=== PATIENT | male | born 1985 | race Caucasian/White ===

== ENCOUNTER 2017-05-23 11:57 | Observation (INO) | payer OTHER ==
[2017-05-23] MEDS: ONDANSETRON 4 MG INJ IV ×2 (15:44→17:38)
[2017-05-23 15:46] LABS: ADD MAN DIFF? NO
[2017-05-23 15:52] LABS: BASOPHILS % 0.4 % (0.0-2.0); EOSINOPHILS # 0.1 10^3/ul (0.0-0.5); EOSINOPHILS % 0.9 % (0.0-7.0); HEMATOCRIT 26.3 % (42.0-52.0); HEMOGLOBIN 8.4 g/dl (14.0-18.0); LYMPHOCYTES # 0.7 10^3/ul (0.8-2.9); LYMPHOCYTES % 9.1 % (15.0-51.0); MEAN CORPUSCULAR HEMOGLOBIN 28.9 pg (29.0-33.0); MEAN CORPUSCULAR HGB CONC 31.9 g/dl (32.0-37.0); MEAN CORPUSCULAR VOLUME 90.4 fl (82.0-101.0); MEAN PLATELET VOLUME 11.3 fl (7.4-10.4); MONOCYTE # 0.6 10^3/ul (0.3-0.9); MONOCYTES % 7.6 % (0.0-11.0); NEUTROPHIL # 6.4 10^3/ul (1.6-7.5); NEUTROPHILS % 81.5 % (39.0-77.0); PLATELET COUNT 196 10^3/UL (140-415); RED BLOOD COUNT 2.91 10^6/ul (4.70-6.10); RED CELL DISTRIBUTION WIDTH 16.1 % (11.5-14.5)
[2017-05-23 15:52] LABS: WHITE BLOOD COUNT 7.8 10^3/ul (4.8-10.8)
[2017-05-23 16:13] LABS: ALANINE AMINOTRANSFERASE 22 IU/L (13-69); ALBUMIN 4.3 g/dl (3.3-4.9); ALBUMIN/GLOBULIN RATIO 1.43; ALKALINE PHOSPHATASE 87 IU/L (42-121); ANION GAP 30 (8-16); ASPARTATE AMINO TRANSFERASE < 8 IU/L (15-46); BLOOD UREA NITROGEN 94 mg/dl (7-20); CALCIUM 9.6 mg/dl (8.4-10.2); CARBON DIOXIDE 19 mmol/L (21-31); CHLORIDE 106 mmol/L (97-110); GLUCOSE 92 mg/dl (70-220); SODIUM 148 mmol/L (135-144); TOTAL PROTEIN 7.3 g/dl (6.1-8.1)
[2017-05-23 16:30] LABS: CREATININE 31.14 mg/dl (0.61-1.24)
[2017-05-23] MEDS: NA BICARBONATE 8.4% 50 ML SYG IV (17:18)
[2017-05-23] MEDS: CA CHLORIDE 10% 10 ML SYRINGE IV (17:18)
[2017-05-23] MEDS: NA POLYST SULFON 15 GM/60 ML BTL PO (17:19)
[2017-05-23] MEDS ORDERED: DEXTROSE 50% 50 ML SYRINGE (17:26)
[2017-05-23] MEDS: INSULIN REGULAR, HUMAN 100 UNIT/1 ML 3ML VIAL IVP (17:30)
[2017-05-23] MEDS: SODIUM BICARBONATE (IV ADD) 100 MEQ in DEXTROSE 5% 900 ML IV (17:38)
[2017-05-23] MEDS: DEXTROSE 50% 50 ML SYRINGE IV (17:38)
[2017-05-23] MEDS ORDERED: ONDANSETRON 4 MG INJ IV ×2 (18:00→19:30)
[2017-05-23] MEDS ORDERED: ACETAMINOPHEN 325 MG TAB PO ×2 (18:00→19:30)
[2017-05-23] MEDS: NICARDipine HCL 30 MG CAPSULE PO (19:15)
[2017-05-23] MEDS ORDERED: NACL 0.9% 3 ML SYG IV (19:30)
[2017-05-23] MEDS ORDERED: morphine LIQ (10 MG/5 ML) CUP PO (19:30)
[2017-05-23 23:34] LABS: HEPATITIS B SURFACE ANTIGEN NEGATIVE (NEGATIVE)
[2017-05-24] MEDS: HEPARIN 1000 UNITS/ML 10 ML INJ CATHETER (01:14)
[2017-05-24] MEDS: HYDROCODONE/APAP (5/325) TAB PO (02:42)
[2017-05-24] MEDS: CALCIUM ACETATE 667 MG CAP PO ×3 (08:14→17:26)
[2017-05-24] MEDS: BENAZEPRIL 40 MG TAB PO (08:16)
[2017-05-24 08:27] LABS: ADD MAN DIFF? NO
[2017-05-24 08:37] LABS: BASOPHILS % 0.4 % (0.0-2.0); EOSINOPHILS # 0.1 10^3/ul (0.0-0.5); EOSINOPHILS % 2.4 % (0.0-7.0); HEMATOCRIT 25.7 % (42.0-52.0); HEMOGLOBIN 8.1 g/dl (14.0-18.0); LYMPHOCYTES # 0.8 10^3/ul (0.8-2.9); LYMPHOCYTES % 16.6 % (15.0-51.0); MEAN CORPUSCULAR HEMOGLOBIN 28.3 pg (29.0-33.0); MEAN CORPUSCULAR HGB CONC 31.5 g/dl (32.0-37.0); MEAN CORPUSCULAR VOLUME 89.9 fl (82.0-101.0); MEAN PLATELET VOLUME 10.2 fl (7.4-10.4); MONOCYTE # 0.2 10^3/ul (0.3-0.9); MONOCYTES % 3.9 % (0.0-11.0); NEUTROPHIL # 3.5 10^3/ul (1.6-7.5); NEUTROPHILS % 76.5 % (39.0-77.0); PLATELET COUNT 158 10^3/UL (140-415); RED BLOOD COUNT 2.86 10^6/ul (4.70-6.10); RED CELL DISTRIBUTION WIDTH 15.9 % (11.5-14.5)
[2017-05-24 08:37] LABS: WHITE BLOOD COUNT 4.6 10^3/ul (4.8-10.8)
[2017-05-24 09:00] LABS: ALANINE AMINOTRANSFERASE 25 IU/L (13-69); ALBUMIN 4.2 g/dl (3.3-4.9); ALKALINE PHOSPHATASE 74 IU/L (42-121); ANION GAP 21 (8-16); ASPARTATE AMINO TRANSFERASE 9 IU/L (15-46); BLOOD UREA NITROGEN 46 mg/dl (7-20); CALCIUM 9.2 mg/dl (8.4-10.2); CARBON DIOXIDE 28 mmol/L (21-31); CHLORIDE 99 mmol/L (97-110); GLUCOSE 85 mg/dl (70-220); POTASSIUM 4.8 mmol/L (3.5-5.1); SODIUM 143 mmol/L (135-144); TOTAL PROTEIN 7.2 g/dl (6.1-8.1)
[2017-05-24 09:12] LABS: CREATININE 19.09 mg/dl (0.61-1.24)
[2017-05-24 09:38] LABS: MAGNESIUM 1.8 mg/dl (1.7-2.5)
[2017-05-24 09:38] LABS: PHOSPHORUS 5.5 mg/dl (2.5-4.9)
[2017-05-24] MEDS ORDERED: ALBUMIN HUMAN 25% 50 ML IV (19:00)
[2017-05-24] MEDS ORDERED: SODIUM CHLORIDE 0.9% 1L BAG IV (19:00)
[2017-05-24] MEDS ORDERED: HEPARIN 1000 UNITS/ML 10 ML INJ CATHETER (19:00)
[2017-05-25] MEDS: CALCIUM ACETATE 667 MG CAP PO ×2 (08:27→11:39)
[2017-05-25] MEDS: BENAZEPRIL 40 MG TAB PO (08:27)
[2017-05-25 09:18] LABS: ANION GAP 20 (8-16); BLOOD UREA NITROGEN 56 mg/dl (7-20); CALCIUM 8.9 mg/dl (8.4-10.2); CARBON DIOXIDE 29 mmol/L (21-31); CHLORIDE 97 mmol/L (97-110); GLUCOSE 105 mg/dl (70-220); POTASSIUM 5.1 mmol/L (3.5-5.1); SODIUM 141 mmol/L (135-144)
[2017-05-25 09:26] LABS: CREATININE 22.66 mg/dl (0.61-1.24)
[2017-05-25] MEDS: HEPARIN 1000 UNITS/ML 10 ML INJ CATHETER (12:35)
[2017-05-25] MEDS: AMLODIPINE 5 MG TAB PO (14:50)
== END 2017-05-25 16:55 | disposition home or self-care (01) ==
LOC: E/R 11:57 → TEL 20:41
DX: I12.0 Hypertensive chronic kidney disease with stage 5 chronic kidney disease or end stage renal disease (principal); N18.6 End stage renal disease; Z99.2 Dependence on renal dialysis; Z91.15 Patient's noncompliance with renal dialysis; Z79.82 Long term (current) use of aspirin; Z87.891 Personal history of nicotine dependence; E83.39 Other disorders of phosphorus metabolism
CPT/HCPCS: 36415; 80048; 80053; 82962; 83735; 84100; 85025; 87081; 87340; 90935; 96374; 96375; 96376; 99285-25; G0378